=== PATIENT | female | born 1980 | race Hispanic/Latino ===

== ENCOUNTER 2017-10-21 12:02 | Inpatient (IN) | payer MEDICAID ==
[~2017-10-21] VITALS: Ht 142.2 cm; Wt 59.0 kg
[2017-10-21 12:36] LABS: APPEARANCE,URINE Clear (CLEAR); BILIRUBIN,URINE Negative (NEGATIVE); COLOR,URINE Yellow (YELLOW); GLUCOSE, URINE (UA) >=1000 mg/dL (NEGATIVE); KETONES,URINE >=160 mg/dL (NEGATIVE); LEUKOCYTE ESTERASE ,URINE Negative (NEGATIVE); NITRATE,URINE Negative (NEGATIVE); OCCULT BLOOD,URINE Negative (NEGATIVE); PROTEIN,URINE Negative (NEGATIVE)
[2017-10-21 12:39] LABS: HCG,QUAL RESULT NEGATIVE (NEGATIVE)
[2017-10-21 12:46] LABS: AMPHET/METH SCREEN,URINE NEGATIVE (NEGATIVE); BARBITURATE SCREEN, URINE NEGATIVE (NEGATIVE); BENZODIAZEPINES SCREEN,URINE NEGATIVE (NEGATIVE); CANNABINOID SCREEN,URINE NEGATIVE (NEGATIVE); COCAINE SCREEN,URINE NEGATIVE (NEGATIVE); OPIATE SCREEN,URINE NEGATIVE (NEGATIVE); PHENCYCLIDINE SCREEN,URINE NEGATIVE (NEGATIVE)
[2017-10-21] MEDS ORDERED: FAMOTIDINE/PF 20 MG/2 ML VIAL IV ONE (12:50)
[2017-10-21] MEDS ORDERED: ONDANSETRON HCL 4 MG/2 ML VIAL ONE (12:50)
[2017-10-21 12:52] LABS: BASOPHILS % (AUTO) 0.3 % (0.0-5.0); EOSINOPHILS % (AUTO) 0.1 % (0.0-8.0); HEMATOCRIT 32.6 % (36-48); LYMPHOCYTES % (AUTO) 17.6 % (21.0-51.0); MEAN CORPUSCULAR HEMOGLOBIN 24.5 pg (27.0-33.0); MEAN CORPUSCULAR HGB CONC 32.7 g/dL (32.0-36.0); MONOCYTES % (AUTO) 9.1 % (3.0-13.0); NEUTROPHILS % (AUTO) 72.9 % (40.0-77.0); PLATELET COUNT (AUTO) 284 K/uL (130-400); RED BLOOD CELL COUNT(AUTO) 4.35 MIL/uL (4.00-5.50); RED CELL DISTRIBUTION WIDTH 16.3 % (11.0-15.5); WHITE BLOOD COUNT (AUTO) 6.3 K/uL (4.8-10.8)
[2017-10-21 13:01] LABS: CREATININE 0.7 mg/dL (0.5-1.5); POTASSIUM 4.1 mmol/L (3.5-5.1)
[2017-10-21 13:02] LABS: BACTERIA,URINE Few /HPF (None Seen); RBC,URINE 0-1 /HPF (0-1); WBC,URINE 0-1 /HPF (0-1)
[2017-10-21 13:05] LABS: ALBUMIN 3.3 g/dL (3.5-5.0); BILIRUBIN,DIRECT 0.1 mg/dL (0.0-0.3); BILIRUBIN,TOTAL 0.3 mg/dL (0.2-1.0); TOTAL PROTEIN, SERUM 7.3 g/dL (6.0-8.3)
[2017-10-21] MEDS ORDERED: METOCLOPRAMIDE 10 MG/2 ML VIAL ONE (15:19)
[2017-10-21] MEDS ORDERED: SODIUM CHLORIDE 0.9% 1000ML 1,000 ML IV ONE (15:19)
[2017-10-21 17:24] VITALS: BP 152/97
[2017-10-21] MEDS ORDERED: DEXTROSE 50%-WATER 50 ML DISP.SYRIN IV PRN (17:45)
[2017-10-21] MEDS ORDERED: ACETAMINOPHEN 325 MG TAB PO PRN (17:45)
[2017-10-21] MEDS ORDERED: GLUCAGON 1MG KIT 1 MG ML IM PRN (17:45)
[2017-10-21] MEDS: SODIUM CHLORIDE 0.9% 1000ML 1,000 ML IV SCH ×2 (18:03→23:50)
[2017-10-21] MEDS: ONDANSETRON HCL 4 MG/2 ML VIAL IVP PRN (18:03)
[2017-10-21] MEDS ORDERED: METF10004 PO (18:18)
[2017-10-21 19:30] VITALS: BP 133/77
[2017-10-21] MEDS ORDERED: KETOROLAC TROMETHAMINE 30MG/ML ONE (19:54)
[2017-10-21] MEDS ORDERED: KETOROLAC TROMETHAMINE 30MG/ML IV PRN (20:00)
[2017-10-21] MEDS: METOCLOPRAMIDE 10 MG/2 ML VIAL IVP SCH (20:51)
[2017-10-21] MEDS: INSULIN R PO SS1 SQ SCH (21:25)
[2017-10-21 23:25] VITALS: BP 96/56
[2017-10-22] MEDS: METOCLOPRAMIDE 10 MG/2 ML VIAL IVP SCH ×4 (03:32→22:26)
[2017-10-22 03:38] VITALS: BP 114/67
[2017-10-22 03:46] LABS: APPEARANCE,URINE Clear (CLEAR); BILIRUBIN,URINE Negative (NEGATIVE); COLOR,URINE Yellow (YELLOW); GLUCOSE, URINE (UA) 500 mg/dL (NEGATIVE); KETONES,URINE >=80 mg/dL (NEGATIVE); LEUKOCYTE ESTERASE ,URINE Trace (NEGATIVE); NITRATE,URINE Negative (NEGATIVE); OCCULT BLOOD,URINE Negative (NEGATIVE); PH,URINE 6.5 (5.0-8.0); PROTEIN,URINE Negative (NEGATIVE); UROBILINOGEN,URINE 0.2 mg/dL (0.2-1.0)
[2017-10-22 04:07] LABS: BACTERIA,URINE None Seen /HPF (None Seen); RBC,URINE None Seen /HPF (0-1)
[2017-10-22 04:08] LABS: MUCUS,URINE Rare LPF (None Seen); SQUAMOUS EPITHELIAL CELL,UR Rare /HPF (0-2); YEAST,URINE BUDDING None Seen /HPF (None Seen)
[2017-10-22] MEDS: INSULIN R PO SS1 SQ SCH ×4 (06:11→21:00)
[2017-10-22] MEDS: SODIUM CHLORIDE 0.9% 1000ML 1,000 ML IV SCH (06:18)
[2017-10-22 06:19] LABS: HEMATOCRIT 28.7 % (36-48); MEAN CORPUSCULAR HEMOGLOBIN 25.3 pg (27.0-33.0); MEAN CORPUSCULAR HGB CONC 33.5 g/dL (32.0-36.0); MEAN CORPUSCULAR VOLUME 75.4 fL (79-99); PLATELET COUNT (AUTO) 266 K/uL (130-400); RED BLOOD CELL COUNT(AUTO) 3.81 MIL/uL (4.00-5.50); RED CELL DISTRIBUTION WIDTH 15.8 % (11.0-15.5); WHITE BLOOD COUNT (AUTO) 6.8 K/uL (4.8-10.8)
[2017-10-22 06:26] LABS: CARBON DIOXIDE 25 mmol/L (21-32); CHLORIDE 103 mmol/L (101-111); CREATININE 0.5 mg/dL (0.5-1.5); GLOMERULAR FILTR. RATE CALC 149 mL/min (>60); GLUCOSE,RANDOM 138 mg/dL (70-105); POTASSIUM 3.1 mmol/L (3.5-5.1); SODIUM SERUM 137 mmol/L (136-145); UREA NITROGEN, BLOOD 5 mg/dL (7-18)
[2017-10-22 07:30] VITALS: BP 133/83
[2017-10-22 07:47] LABS: ACETONE,BLOOD NEGATIVE (NEGATIVE)
[2017-10-22] MEDS ORDERED: METFORMIN HCL 500 MG TABLET PO SCH (08:00)
[2017-10-22] MEDS: ENOXAPARIN SODIUM 40 MG/0.4 ML SYRINGE SQ SCH (08:00)
[2017-10-22 08:12] LABS: BAND NEUTROPHILS % (MANUAL) 1 % (0-2); LYMPHOCYTES % (MANUAL) 21 % (22-44); MAN.DIFF COMMENT-IMPRESSION MANUAL DIFFERENTIAL; MONOCYTES % (MANUAL) 7 % (2-9); PLATELET MORPHOLOGY COMMENT ADEQUATE; SEGMENTED NEUTROPHILS % 71 % (40-70)
[2017-10-22] MEDS ORDERED: FAMOTIDINE/PF 20 MG/2 ML VIAL IV SCH (09:00)
[2017-10-22 11:19] VITALS: BP 141/85
[2017-10-22] MEDS ORDERED: BISACODYL 10 MG SUPP.RECT RC PRN (12:00)
[2017-10-22] MEDS ORDERED: LACTULOSE 20 GM/30 ML UDCUP PO PRN (12:00)
[2017-10-22] MEDS ORDERED: POTASSIUM CHLORIDE 10% ELIXIR 20 MEQ/15 ML UDCUP PO PRN (12:00)
[2017-10-22] MEDS ORDERED: LIDOCAINE HCL-MPF 1% 2ML VIAL IVP PRN (12:00)
[2017-10-22] MEDS: POTASSIUM CHLORIDE 20 MEQ ERTAB PO PRN ×2 (12:10→14:50)
[2017-10-22] MEDS: ONDANSETRON HCL 4 MG/2 ML VIAL IVP PRN (12:16)
[2017-10-22] MEDS ORDERED: PROMETHAZINE HCL 25 MG/ML 1ML AMPULE IM PRN (15:15)
[2017-10-22] MEDS: POTASSIUM CHLORIDE 20MEQ/100ML 100 ML IV PRN ×2 (15:31→22:34)
[2017-10-22] MEDS: PANTOPRAZOLE 40 MG/VIAL IVP SCH (16:02)
[2017-10-22] MEDS: MORPHINE SULFATE 2 MG/ML 1ML SYG IVP PRN ×2 (16:15→22:27)
[2017-10-22 16:31] VITALS: BP 145/88
[2017-10-22 20:08] VITALS: BP 143/90
[2017-10-23 00:08] VITALS: BP 113/72
[2017-10-23] MEDS: METOCLOPRAMIDE 10 MG/2 ML VIAL IVP SCH ×3 (02:38→14:55)
[2017-10-23 04:08] VITALS: BP 136/81
[2017-10-23 05:05] LABS: BASOPHILS % (AUTO) 0.4 % (0.0-5.0); EOSINOPHILS % (AUTO) 0.9 % (0.0-8.0); HEMATOCRIT 27.6 % (36-48); LYMPHOCYTES % (AUTO) 28.6 % (21.0-51.0); MEAN CORPUSCULAR HEMOGLOBIN 24.8 pg (27.0-33.0); MEAN CORPUSCULAR HGB CONC 33.2 g/dL (32.0-36.0); MEAN CORPUSCULAR VOLUME 74.8 fL (79-99); MONOCYTES % (AUTO) 10.4 % (3.0-13.0); NEUTROPHILS % (AUTO) 59.7 % (40.0-77.0); PLATELET COUNT (AUTO) 280 K/uL (130-400); RED BLOOD CELL COUNT(AUTO) 3.69 MIL/uL (4.00-5.50); RED CELL DISTRIBUTION WIDTH 16.2 % (11.0-15.5); WHITE BLOOD COUNT (AUTO) 5.5 K/uL (4.8-10.8)
[2017-10-23 05:26] LABS: CREATININE 0.5 mg/dL (0.5-1.5); POTASSIUM 3.7 mmol/L (3.5-5.1)
[2017-10-23 05:29] LABS: HEMOGLOBIN A1C 10.6 % (4.0-6.0)
[2017-10-23] MEDS: MORPHINE SULFATE 2 MG/ML 1ML SYG IVP PRN (07:20)
[2017-10-23] MEDS: INSULIN R PO SS1 SQ SCH ×3 (07:24→16:23)
[2017-10-23 07:42] VITALS: BP 144/90
[2017-10-23] MEDS: PANTOPRAZOLE 40 MG/VIAL IVP SCH (10:51)
[2017-10-23] MEDS: ENOXAPARIN SODIUM 40 MG/0.4 ML SYRINGE SQ SCH (10:51)
[2017-10-23 11:00] VITALS: BP 146/85
[2017-10-23 15:10] VITALS: BP 132/82
[2017-10-23] MEDS ORDERED: METO10TA41 PO (16:48)
== END 2017-10-23 18:13 | disposition home or self-care (01) | DRG 420 ==
LOC: EDH 12:02 → OBSVTOIN 12:03 → EDHIP 12:03 → 4BH 17:02
PROVIDERS: ADMIT Internal Medicine Nephrology; ATTEND Internal Medicine Nephrology
DX: E11.65 Type 2 diabetes mellitus with hyperglycemia (principal); K31.84 Gastroparesis; E11.43 Type 2 diabetes mellitus with diabetic autonomic (poly)neuropathy; K59.00 Constipation, unspecified; Z83.3 Family history of diabetes mellitus
CPT/HCPCS: 36415; 76705; 78264; 80048; 80061; 80076; 80305; 81001; 81025; 82009; 82150; 82948; 83036; 83690; 85025; A9541; C9113; J1650; J1815; J1885; J2405; J2765; J3480; J3490; J7030

== ENCOUNTER → 2024-10-23 | Outpatient (CLI) | payer OTHER, MEDICARE ==
[~2024-10-23] MED LIST: METF-446 PO; METO10TA41 PO
== END | disposition home or self-care (01) ==
LOC: RAH 11:00
PROVIDERS: ATTEND Internal Medicine Gastroenterology
DX: R11.2 Nausea with vomiting, unspecified (principal); K31.84 Gastroparesis